=== PATIENT | male | born 2005 | race Caucasian/White ===

== ENCOUNTER 2023-01-19 22:40 | Emergency (ER) | payer BC ==
[~2023-01-19] VITALS: Ht 172.7 cm; Wt 67.6 kg
[2023-01-19 23:23] VITALS: BP 113/71
--- NOTE | 2023-01-19 23:31 | NUR ---
Patient states " I can not wait for X-ray, my friend waited outside."
== END 2023-01-19 23:31 | disposition left against medical advice (07) ==
LOC: MED 22:40
DX: M25.532 Pain in left wrist (principal); Z53.21 Procedure and treatment not carried out due to patient leaving prior to being seen by health care provider